=== PATIENT | male | born 1960 | race Caucasian/White ===

== ENCOUNTER 2019-07-16 10:21 | Emergency (ER) | payer BC ==
--- NOTE | 2019-07-16 10:40 | ER Document Report ---
ED Medical Screen (RME) - General Chief Complaint: Abdominal Pain Stated Complaint: ABDOMINAL PAIN Time Seen by Provider: 07/16/19 10:35 Notes: HPI: 59-year-old male presenting by EMS for evaluation of left lower quadrant pain with bulging in the left groin region. No testicular pain. No dysuria no fever nausea vomiting. Patient has had intermittent pain in the left lower quadrant over the last 2 to 3 months. He does relate that he believes that he had a perforation several years ago that required antibiotic treatment in the bowel. Does not know if he had diverticulitis. Patient states there was a large bulge in the left inguinal region that is not present now but still has tenderness in the left inguinal and lower quadrant region I have greeted and performed a rapid initial assessment of this patient. A comprehensive ED assessment and evaluation of the patient, analysis of test results and completion of the medical decision making process will be conducted by additional ED providers PHYSICAL EXAMINATION: GENERAL: Well-appearing, well-nourished and in mild acute distress. HEAD: Atraumatic, normocephalic. EYES: sclera anicteric, conjunctiva are normal. ENT: Moist mucous membranes. NECK: Normal range of motion LUNGS: Normal work of breathing, clear to auscultation HEART: 2+ radial pulses bilaterally, regular rate and rhythm ABD: limited by positioning for exam in triage. There is tenderness in the left lower quadrant left inguinal region on palpation. There is no apparent inguinal hernia at this time on the left side EXTREMITIES: no pitting or edema. No cyanosis. NEUROLOGICAL: No focal neurological deficits. Moves all extremities spontaneously and on command. PSYCH: Normal mood, normal affect. SKIN: Warm, Dry, normal turgor, no rashes or lesions noted. TRAVEL OUTSIDE OF THE [place] IN LAST 30 DAYS: No - Related Data Allergies/Adverse Reactions: No Known Allergies Allergy (Unverified 07/16/19 10:34) Physical Exam - Vital signs Vitals: Temp Pulse Resp BP Pulse Ox 98.0 F 68 18 136/79 H 99 07/16/19 10:31 07/16/19 10:31 07/16/19 10:31 07/16/19 10:07/16/19 10:31 Course - Vital Signs Vital signs: Temp Pulse Resp BP Pulse Ox 98.0 F 68 18 136/79 H 99 07/16/19 10:31 07/16/19 10:31 07/16/19 10:31 07/16/19 10:31 07/16/19 10:31
[2019-07-16 11:21] LABS: APPEARANCE,URINE CLEAR; BILIRUBIN,URINE NEGATIVE (NEGATIVE); COLOR,URINE YELLOW; GLUCOSE, URINE NEGATIVE (NEGATIVE); KETONES,URINE TRACE mg/dL (NEGATIVE); LEUKOCYTE ESTERASE,URINE NEGATIVE (NEGATIVE); NITRITE,URINE NEGATIVE (NEGATIVE); PROTEIN,URINE NEGATIVE (NEGATIVE); UROBILINOGEN,URINE NEGATIVE mg/dL (<2.0)
[2019-07-16 11:31] LABS: ABSOLUTE EOSINOPHILS # (AUTO) 0.2 10^3/uL (0.0-0.6); ABSOLUTE LYMPHOCYTES (AUTO) 0.8 10^3/uL (0.5-4.7); ABSOLUTE MONOCYTES (AUTO) 0.4 10^3/uL (0.1-1.4); ABSOLUTE NEUT (AUTO) 3.3 10^3/uL (1.7-8.2); EOSINOPHILS % (AUTO) 3.3 % (0-6); HEMATOCRIT 40.1 % (37.9-51.0); HEMOGLOBIN 14.1 g/dL (13.5-17.0); LYMPHOCYTES % (AUTO) 16.7 % (13-45); MEAN CORPUSCULAR HGB CONC 35.3 g/dL (32.0-36.0); MEAN CORPUSCULAR VOLUME 96 fl (80-97); MONOCYTES % (AUTO) 9.4 % (3-13); PLATELET COUNT 213 10^3/uL (150-450); RED BLOOD COUNT 4.16 10^6/uL (4.35-5.55); RED CELL DISTRIBUTION WIDTH 12.6 % (11.5-14.0); SEGMENTED NEUTROPHILS % (AUTO) 69.6 % (42-78); TOTAL CELLS COUNTED % (AUTO) 100 %; WHITE BLOOD COUNT 4.7 10^3/uL (4.0-10.5)
[2019-07-16 11:36] LABS: ALBUMIN 4.7 g/dL (3.5-5.0); ALKALINE PHOSPHATASE 49 U/L (38-126); ANION GAP 7 (5-19); ASPARTATE AMINO TRANSFERASE 40 U/L (17-59); BILIRUBIN,TOTAL 0.7 mg/dL (0.2-1.3); BLOOD UREA NITROGEN 12 mg/dL (7-20); CALCIUM 9.3 mg/dL (8.4-10.2); CARBON DIOXIDE 26 mmol/L (22-30); CHLORIDE 104 mmol/L (98-107); GLUCOSE 93 mg/dL (75-110); POTASSIUM 4.6 mmol/L (3.6-5.0); TOTAL PROTEIN 7.7 g/dL (6.3-8.2)
--- NOTE | 2019-07-16 11:39 | ER Document Report ---
ED GI/ - General Chief Complaint: Abdominal Pain Stated Complaint: ABDOMINAL PAIN Time Seen by Provider: 07/16/19 10:35 Primary Care Provider: RAQUEL MOSQUEDA MD [ACTIVE STAFF] - Follow up as needed Notes: 59-year-old man presents to the emergency department history of a left groin area pain with a bulging. He states that the symptoms began this morning and was very severe. EMS was called and during the transport the bulge went down. He continues to complain of pain in the left groin region. He has had a history of perforated bowel in the past. He denies nausea, vomiting, fever or chills. TRAVEL OUTSIDE OF THE [place] IN LAST 30 DAYS: No - Related Data Allergies/Adverse Reactions: No Known Allergies Allergy (Unverified 07/16/19 10:34) Past Medical History - Social History Smoking Status: Unknown if Ever Smoked Family History: Reviewed & Not Pertinent Patient has suicidal ideation: No Patient has homicidal ideation: No Review of Systems - Review of Systems Notes: Constitutional: Negative for fever. HENT: Negative for sore throat. Eyes: Negative for visual changes. Cardiovascular: Negative for chest pain. Respiratory: Negative for shortness of breath. Gastrointestinal: + Left inguinal bulging, + left inguinal pain Genitourinary: Negative for dysuria. Musculoskeletal: Negative for back pain. Skin: Negative for rash. Neurological: Negative for headaches, weakness or numbness. 10 point ROS negative except as marked above and in HPI. Physical Exam - Vital signs Vitals: Temp Pulse Resp BP Pulse Ox 98.0 F 68 18 136/79 H 99 07/16/19 10:31 07/16/19 10:31 07/16/19 10:31 07/16/19 10:31 07/16/19 10:31 - Notes Notes: PHYSICAL EXAMINATION: Physical Exam: General: Well-nourished well-developed 59-year-old man in no acute distress HEENT: NC/AT, pupils equal round and reactive to light, MM moist,nares clear, oropharynx clear, airway patent Neck: supple, no adenopathy, no masses. Good range of motion Lungs: clear, no wheezing, no rales no rhonchi CVS: Regular rate and rhythm no murmur gallop or rub Abdomen: Soft, active, + tenderness in the left inguinal region, no bulging, no mass. Ext: No edema, clubbing or cyanosis. Neuro: Alert and responsive, moving all 4 extremities on command, cranial nerves intact, no focal findings Skin: Intact no open lesions, no rash PSYCH: Normal mood, normal affect. Course - Re-evaluation Re-evalutation: 07/16/19 15:06 59-year-old man with a acute left inguinal hernia which has spontaneously reduced. Presently he is comfortable. A CT scan of the abdomen and pelvis with oral and IV contrast was ordered. The x-ray is negative. I have explained to the patient that he can follow-up with outpatient surgery and if his hernia continues to be problematic he can attempt to reduce it himself or return to the emergency department if needed. The patient is in agreement with that plan and is being discharged. - Vital Signs Vital signs: Temp Pulse Resp BP Pulse Ox 98.0 F 62 18 134/78 H 99 07/16/19 15:44 07/16/19 15:44 07/16/19 15:44 07/16/19 15:44 07/16/19 15:44 - Laboratory Result Diagrams: 07/16/19 10:55 07/16/19 10:55 Laboratory results interpreted by me: 07/16/19 07/16/19 10:55 10:55 RBC 4.16 L MCH 34.0 H Urine Ketones TRACE H 07/16/19 15:07 I have reviewed laboratory data and used this information for the treatment decisions regarding the patient. - Diagnostic Test Radiology reviewed: Image reviewed, Reports reviewed - CT of the abdomen and pelvis with oral and IV contrast: No acute findings. Discharge - Discharge Clinical Impression: Left inguinal hernia Condition: Good Disposition: HOME, SELF-CARE Instructions: Hernia ([facility]) Additional Instructions: Please follow-up with general surgery. Call for appointment on Friday. If the hernia pops back out, lie flat on your back flex your legs at the knees and apply gentle pressure. If you are unable to reduce the hernia, return to the emergency department for further treatment. HOME CARE INSTRUCTIONS & INFORMATION: Thank you for choosing us for your medical needs. We hope you're satisfied with the care you received. After you leave, you must properly care for your problem and, at the same time, observe its progress. Any condition can change. Some illnesses can change rapidly over hours or days. If your condition worsens, return to the Emergency Department or see your physician promptly. ABOUT YOUR X-RAYS AND EKG'S: If you had an EKG or X-rays taken, they have been read by the Emergency Physician. The X-rays and EKG's will also be read by a Radiologist or Batch Maker within 24 hours. If discrepancies are noted, you will be notified by telephone. Please be certain the ED has a correct telephone number & address where you can be reached. Also, realize that some fractures or abnormalities do not show up on initial X-rays. If your symptoms continue, see your physician. ABOUT YOUR LABORATORY TEST: If you had laboratory tests, the results have been reviewed by the Emergency Physician. Some test results (for example cultures) may not be available for several days. You will be contacted if any test result shows you need additional treatment. Please be certain the ED has a correct telephone number and address where you can be reached. ABOUT YOUR MEDICATIONS: You will receive instructions on how to take your medicine on the prescription label you receive. Additional information may be p rovided by the Pharmacy. If you have questions afterwards, call the ED for clarification or further instructions. Some prescribed medications may cause drowsiness. Do not perform tasks such as driving a car or operating machinery without consulting your Pharmacist. If you feel you need a refill of pain medication, your condition will need re-evaluation. Please do not call for a refill of any medication. ABOUT YOUR SIGNATURE: Signature of this document acknowledges to followin. Understanding that you received emergency treatment and that you may be released before al medical problems are known or treated. Please be certain the ED has a correct phone number & address where you can be reached. 2. Acknowledgement that you will arrange for follow-up care as recommended. 3. Authorization for the Emergency Physician to provide information to your follow-up Physician in order to maximize your care. AT ANY TIME, IF YOUR SYMPTOMS CHANGE SIGNIFICANTLY OR WORSEN OR YOU DEVELOP NEW SYMPTOMS, RETURN TO THE EMERGENCY DEPARTMENT IMMEDIATELY FOR RE-EVALUATION. OUR GOAL IS TO PROVIDE EXCELLENT MEDICAL CARE! WE HOPE THAT WE HAVE MET YOUR EXPECTATIONS DURING YOUR EMERGENCY DEPARTMENT VISIT AND THAT YOU FEEL YOU HAVE RECEIVED EXCELLENT CARE! Referrals: RAQUEL MOSQUEDA MD [ACTIVE STAFF] - Follow up as needed
--- NOTE | 2019-07-16 14:01 | RADIOLOGY REPORT (SQ) ---
EXAM DESCRIPTION: CT ABD/PELVIS WITH IV ORAL COMPLETED DATE/TIME: 07/16/2019 12:31 pm REASON FOR STUDY: LLQ pain. COMPARISON: None. TECHNIQUE: CT scan of the abdomen and pelvis performed using helical scanning technique with dynamic intravenous contrast injection. No oral contrast. Images reviewed with lung, soft tissue, and bone windows. Reconstructed coronal and sagittal MPR images reviewed. Delayed images for evaluation of the urinary system also acquired. All images stored on PACS. All CT scanners at this facility use dose modulation, iterative reconstruction, and/or weight based d osing when appropriate to reduce radiation dose to as low as reasonably achievable (ALARA). [facility]: Dose Right [facility]: CareDose [facility]: Dose Right [facility]: Teradose 4D [facility]: [email or web address] CONTRAST TYPE AND DOSE: contrast/concentration: Isovue 350.00 mg/ml; Total Contrast Delivered: 80.0 ml; Total Saline Delivered: 64.1 ml RENAL FUNCTION: GFR > 60. RADIATION DOSE: CT Rad equipment meets quality standard of care and radiation dose reduction techniq ues were employed. CTDIvol: 6.9 - 9.4 mGy. DLP: 807 mGy-cm.. LIMITATIONS: None. FINDINGS: LOWER CHEST: There is an 8 mm sub solid ground-glass nodule in the lingula (image 8). No focal consolidation or pleural effusion. LIVER: The liver has normal size and contour. There is severe diffuse hepatic steatosis. This limit s evaluation for evaluation of the hepatic parenchyma. Hepatic and portal veins are patent. No intr ahepatic or extrahepatic biliary ductal dilation. SPLEEN: Normal size. No focal lesions. PANCREAS: No masses. No significant calcifications. No adjacent inflammation or peripancreatic fluid collections. Pancreatic duct not dilated. GALLBLADDER: No identified stones by CT criteria. No inflammatory changes to suggest cholecystitis. ADRENAL GLANDS: No significant masses or asymmetry. RIGHT KIDNEY AND URETER: No solid masses. No significant calcifications. No hydronephrosis or hyd roureter. LEFT KIDNEY AND URETER: No solid masses. No significant calcifications. No hydronephrosis or hydr oureter. AORTA AND VESSELS: No aneurysm. No dissection. Renal arteries, SMA, celiac without stenosis. RETROPERITONEUM: No retroperitoneal adenopathy, hemorrhage or masses. BOWEL AND PERITONEAL CAVITY: There is significant extensive colonic diverticulosis without evidence o f diverticulitis. No bowel obstruction. No bowel wall thickening. No significant inflammatory boothe ge. No ascites or pneumoperitoneum. APPENDIX: Normal. PELVIS: No mass. No free fluid. Normal bladder. ABDOMINAL WALL: Small fat containing umbilical hernia. No subcutaneous mass or drainable abscess. BONES: No significant or acute findings. OTHER: No other significant finding. IMPRESSION: 1. Sigmoid diverticulosis without evidence of diverticulitis. 2. Severe hepatic steatosis. 3. Indeterminate 8 mm ground-glass nodule in the lingula. A follow-up CT of the chest in 3 months is recommended to confirm stability and for re-evaluation. TECHNICAL DOCUMENTATION: JOB ID: [id number] Quality ID # [id number]: Final reports with documentation of one or more dose reduction techniques (e.g., Au tomated exposure control, adjustment of the mA and/or kV according to patient size, use of iterative reconstruction technique) 2010 [employer]- All Rights Reserved Reading location - IP/workstation name: [email or web address]
[2019-07-16 15:44] VITALS: BP 134/78
== END 2019-07-16 15:45 | disposition home or self-care (01) ==
LOC: ER 10:21
DX: K40.90 Unilateral inguinal hernia, without obstruction or gangrene, not specified as recurrent (principal); R10.32 Left lower quadrant pain
CPT/HCPCS: 36415; 74177; 80053; 81001; 82150; 83605; 85025; 99284

== ENCOUNTER 2019-11-02 08:50 | Day surgery (SDC) | payer BC ==
[2019-10-28 09:23] LABS: HEMATOCRIT 41.7 % (37.9-51.0); HEMOGLOBIN 14.4 g/dL (13.5-17.0); MEAN CORPUSCULAR HEMOGLOBIN 33.6 pg (27.0-33.4); MEAN CORPUSCULAR HGB CONC 34.4 g/dL (32.0-36.0); MEAN CORPUSCULAR VOLUME 98 fl (80-97); PLATELET COUNT 191 10^3/uL (150-450); RED BLOOD COUNT 4.28 10^6/uL (4.35-5.55); RED CELL DISTRIBUTION WIDTH 12.9 % (11.5-14.0); WHITE BLOOD COUNT 4.1 10^3/uL (4.0-10.5)
[2019-10-28 09:54] LABS: ANION GAP 7 (5-19); BLOOD UREA NITROGEN 12 mg/dL (7-20); CALCIUM 9.4 mg/dL (8.4-10.2); CARBON DIOXIDE 27 mmol/L (22-30); CHLORIDE 106 mmol/L (98-107); GLUCOSE 98 mg/dL (75-110); POTASSIUM 3.9 mmol/L (3.6-5.0)
--- NOTE | 2019-10-28 12:25 | EKG REPORT ---
SEVERITY:- ABNORMAL ECG - SINUS RHYTHM ABNRM R PROG, CONSIDER ASMI OR LEAD PLACEMENT : Confirmed by: Kamaljit Olivarez MD 28-Oct-2019 12:23:52
[~2019-11-02 08:50] MED LIST: ACETAMINOPHEN 325 MG TABLET PO PRN; CEFAZOLIN 2 GM/D5W RTU 2 GM/50 ML RTUPB IV PRN; LACTATED RINGERS 1000 ML IV PRN; RINGERS SOLUTION,LACTATED 1,000 ML IV PRN
[2019-11-02] MEDS ORDERED: PROPOFOL INJ 200 MG/20 ML VIAL IV ONE (09:14)
[2019-11-02] MEDS ORDERED: MIDAZOLAM 2 MG/2 ML INJ ONE (09:14)
[2019-11-02] MEDS ORDERED: FENTANYL CITRATE INJ/PF 100 MCG/2 ML AMPUL ONE ×2 (09:14→10:48)
[2019-11-02] MEDS ORDERED: KETOROLAC TROMETHAMINE 60 MG/2 ML SDV ONE (09:14)
[2019-11-02] MEDS ORDERED: ONDANSETRON HCL INJ/PF 4 MG/2 ML SDV ONE (09:14)
[2019-11-02] MEDS ORDERED: HYDROMORPHONE HCL INJ/PF 2 MG/ML AMPULE ONE (09:14)
[2019-11-02] MEDS ORDERED: DEXAMETHASONE SOD PHOSPHATE INJ 4 MG/1 ML VIAL ONE (09:14)
[2019-11-02] MEDS ORDERED: CEFAZOLIN 2 GM/D5W RTU 2 GM/50 ML RTUPB IV ONE (09:30)
[2019-11-02] MEDS ORDERED: BUPIVACAINE INJ/PF LIPOSOME/PF 266 MG/20 ML SDV ONE (09:46)
[2019-11-02] MEDS ORDERED: SUCCINYLCHOLINE CHLORIDE INJ 200 MG/10 ML VIAL ONE (10:00)
[2019-11-02] MEDS ORDERED: GLYCOPYRROLATE 1 MG/5 ML VIAL ONE (10:00)
[2019-11-02] MEDS ORDERED: NEOSTIGMINE METHYLSULFATE 10 MG/10 ML VIAL ONE (10:00)
[2019-11-02] MEDS ORDERED: VECURONIUM BROMIDE INJ 10 MG VIAL IV ONE (10:00)
[2019-11-02] MEDS ORDERED: ONDANSETRON HCL INJ/PF 4 MG/2 ML SDV IV PRN (10:12)
[2019-11-02] MEDS ORDERED: MORPHINE SULFATE 10 MG/ML INJ IV PRN (10:12)
[2019-11-02] MEDS ORDERED: PROMETHAZINE HCL INJ 25 MG/1 ML VIAL IV PRN ×2 (10:12)
[2019-11-02] MEDS ORDERED: FENTANYL CITRATE INJ/PF 100 MCG/2 ML AMPUL IV PRN ×2 (10:12)
[2019-11-02] MEDS ORDERED: MEPERIDINE HCL/PF INJ 25 MG/1 ML DISP.SYRIN IV PRN (10:12)
[2019-11-02] MEDS ORDERED: DIPHENHYDRAMINE HCL 50 MG/ML VIAL IV PRN (10:12)
[2019-11-02] MEDS ORDERED: OXYCODONE-ACETAMINOPHEN 5-325 MG TABLET PO PRN ×3 (10:12→10:33)
[2019-11-02] MEDS ORDERED: ACETAMINOPHEN 1,000 MG/100 ML RTUPB IV ONE (10:30)
--- NOTE | 2019-11-02 10:30 | Operative Report ---
Nonrecallable Operative Report DATE OF SURGERY: 11/02/19 PREOPERATIVE DIAGNOSIS: Umbilical hernia and left inguinal hernia POSTOPERATIVE DIAGNOSIS: Umbilical hernia and left inguinal hernia OPERATION: Laparoscopic left inguinal hernia repair and umbilical hernia repair SURGEON: CARMEN DALLAS 1ST FRONT OFFICE CLERK: CAROLYNN NOGUEIRA ANESTHESIA: GA TISSUE REMOVED OR ALTERED: None COMPLICATIONS: None ESTIMATED BLOOD LOSS: 10 cc INTRAOPERATIVE FINDINGS: Indirect inguinal hernia on the left umbilical hernia PROCEDURE: Patient was brought to the operating room awake alert stable condition placed on the operating table supine position induced under general anesthesia intubated. The abdomen and groins were prepped and draped in usual sterile fashion. After appropriate timeout and site verification the procedure commenced. A infraumbilical incision was made with a 15 blade dissection was carried down through subcutaneous tissue with Bovie cautery the rectus fascia was identified it was opened transversely with a 15 blade. The rectus muscle was retracted towards the right and the spacemaker balloon was placed on top of the posterior sheath and manipulated down to the pubic symphysis. He was under direct vision that we insufflated the balloon. To create the space in the retroperitoneum. The balloon was then removed and the balloontipped camera port was placed in the retroperitoneum. 2 5 mm ports were then placed in the midline under direct vision. We turned attention to the left side we dissected the peritoneum off the transversalis muscle with blunt dissection to identify the cord structures patient had a hernia sac entering the indirect space and was mobilized out of the hernia itself. The cord structures were skeletonized. A search was made for a direct inguinal hernia there was none. We then placed a piece of polypropylene mesh 6 cm long by 3 cm wide with a slit down the side into the retroperitoneum fixed it posteriorly to the Abdiel's ligament anterior to the rectus muscle laterally to the transversalis muscle being careful not to injure the lateral femoral cutaneous nerve. The cord was then wrapped in mesh was fixed in place with the absorb attacks. The the insufflation gas was then stopped and the peritoneum then filled the space. The ports were removed. Attention was then turned to the umbilicus we encircled the umbilical stalk with blunt dissection with an umbilical tape was placed on traction the umbilical stalk was then dissected off the anterior abdominal wall with Bovie cautery to identify the umbilical hernia defect there was some. Preperitoneal fat within the defect which was reduced back in the abdominal cavity. We then closed the defect with interrupted placed 0 Vicryl sutures and the same suture line that we closed the transverse incision made for the inguinal hernia repair. Approximately 6 [id number] sutures were placed. There umbilical L stalk was then tacked back down to the anterior abdominal fascia with 1 stitch of 0 Vicryl. At this point we anesthetized the area with Exparel lidocaine. We then closed the skin incisions with intracuticular 4-0 Biosyn Steri-Strips completed the procedure. Estimated blood loss for the procedure was less than 25 cc sponge and needle counts were correct x2 the patient was awakened in the operating room extubated transferred recovery in stable condition no complications. ANNMARIE Pineda was present for the entire procedure for help with wound retraction and wound closure
--- NOTE | 2019-11-02 10:34 | Discharge Summary ---
Discharge Summary (SDC) - Discharge Final Diagnosis: Umbilical hernia and left inguinal hernia Date of Surgery: 11/02/19 Discharge Date: 11/02/19 Condition: Good Treatment or Instructions: No lifting of any greater than 10 pounds for the next 4 to 6 weeks Prescriptions: Hydrocodone/Acetaminophen [[place] 10-325 mg Tablet] 1 tab PO Q6HP PRN #20 tablet PRN Reason: Referrals: RHONDA ADHIKARI MD [Primary Care Provider] - Discharge Diet: As Tolerated Discharge Activity: No Lifting Over 10 Pounds Report the Following to Your Physician Immediately: Vomiting, Increase in Pain, Unusual Bleeding
[2019-11-02] MEDS: FENTANYL CITRATE INJ/PF 100 MCG/2 ML AMPUL IV PRN ×2 (10:48→10:53)
[2019-11-02 12:52] VITALS: BP 115/74
== END 2019-11-02 12:35 | disposition home or self-care (01) ==
LOC: OROUT 08:50
PROVIDERS: ATTEND Surgery
DX: K40.90 Unilateral inguinal hernia, without obstruction or gangrene, not specified as recurrent (principal); K42.9 Umbilical hernia without obstruction or gangrene
CPT/HCPCS: 49505; 49585; 93005; 36415; 85027; 87635; 80048; 93010; J2250; J1100; J1885; J3010; J3490 ×2; J2710; J0330; J2405; J2704; J0690; J0131; C9290; C9803; C1713; C1781; J1170